=== PATIENT | female | born 1945 | race Native Hawaiian/Other Pacific Islander ===

== ENCOUNTER 2020-07-20 13:07 | Outpatient (CLI) | payer OTHER | END 2020-07-20 19:58 | disposition home or self-care (01) | LOC: RAD 13:07 | PROVIDERS: ATTEND Nurse Practitioner Family | DX: M05.79 Rheumatoid arthritis with rheumatoid factor of multiple sites without organ or systems involvement (principal); M06.4 Inflammatory polyarthropathy; M17.0 Bilateral primary osteoarthritis of knee; M79.7 Fibromyalgia; M85.89 Other specified disorders of bone density and structure, multiple sites ==